=== PATIENT | male | born 1975 | race Caucasian/White ===

== ENCOUNTER 2020-10-20 14:57 | Outpatient (REF) | payer OTHER, SELFPAY | END 2020-10-20 14:58 | disposition home or self-care (01) | LOC: HO.BBR 14:57 | PROVIDERS: PCP Pediatrics; Visit Provider Internal Medicine | DX: Z13.89 Encounter for screening for other disorder (principal) ==

== ENCOUNTER 2021-06-08 15:12 | Outpatient (REF) | payer OTHER, SELFPAY | END 2021-06-08 15:13 | disposition home or self-care (01) | LOC: HO.BBR 15:12 | PROVIDERS: Visit Provider Internal Medicine | DX: Z13.89 Encounter for screening for other disorder (principal) ==